=== PATIENT | female | born 2000 | race Caucasian/White ===

== ENCOUNTER 2019-04-12 20:06 | Emergency (ER) | payer BC ==
[2019-04-12 20:21] VITALS: BP 145/86
[2019-04-12] MEDS ORDERED: Clindamycin CAP* 150 MG PO ONE (20:33)
--- NOTE | 2019-04-12 20:40 | ED ---
Skin Complaint - HPI Summary HPI Summary: 19 yr old with STS anterior chin. She picked a pimple about 5-6 days ago and she has had increased swelling over the inferior aspect of the anterior mandible. She has not had any dental pain. No trouble swallowing. No drooling. No other complaints. - History of Current Complaint Chief Complaint: UCSkin Time Seen by Provider: 04/12/19 20:27 Stated Complaint: SKIN COMPLAINT Hx Last Menstrual Period: 03/28/19 Pain Intensity: 0 - Allergy/Home Medications Allergies/Adverse Reactions: Allergies Allergy/AdvReac Type Severity Reaction Status Date / Time No Known Allergies Allergy Verified 04/12/19 20:18 PMH/Surg Hx/FS Hx/Imm Hx - Surgical History Surgery Procedure, Year, and Place: tonsils Infectious Disease History: No Infectious Disease History: Denies: Traveled Outside the [place] in Last 30 Days - Family History Known Family History: Positive: None - Social History 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 Alcohol Use: Rare Substance Use Type: Reports: None Smoking Status (MU): Never Smoked Tobacco Review of Systems Constitutional: Negative Negative: Dental Pain, Sore Throat Positive: Other - skin STS chin All Other Systems Reviewed And Are Negative: Yes Physical Exam Triage Information Reviewed: Yes Vital Signs On Initial Exam: Initial Vitals Temp Pulse Resp BP Pulse Ox 98.2 F 89 17 145/86 100 04/12/19 20:18 04/12/19 20:18 04/12/19 20:18 04/12/19 20:18 04/12/19 20:18 Vital Signs Reviewed: Yes Appearance: Positive: Well-Appearing, No Pain Distress Skin: Positive: Warm, Skin Color Reflects Adequate Perfusion Head/Face: Positive: Normal Head/Face Inspection Eyes: Positive: EOMI ENT: Positive: Normal ENT inspection, Other - there is mild tenderness over the chin and STS. No swelling of the submandibular space. Tongue is normal. Normal voice. Dental: Negative: Dental Fracture @ Neck: Positive: Supple, No Lymphadenopathy Respiratory/Lung Sounds: Positive: Clear to Auscultation, Breath Sounds Present Cardiovascular: Positive: RRR. Negative: Murmur Abdomen Description: Negative: Distended Musculoskeletal: Positive: Strength/ROM Intact Neurological: Positive: Sensory/Motor Intact, Alert, Oriented to Person Place, Time, CN Intact II-III, Normal Gait, Speech Normal Psychiatric: Positive: Normal - Rahul Coma Scale Best Eye Response: 4 - Spontaneous Best Motor Response: 6 - Obeys Commands Best Verbal Response: 5 - Oriented Coma Scale Total: 15 Diagnostics - Vital Signs Vital Signs Temp Pulse Resp BP Pulse Ox 04/12/19 20:18 98.2 F 89 17 145/86 100 - Laboratory Lab Statement: Any lab studies that have been ordered have been reviewed, and results considered in the medical decision making process. Course/Dx - Course Course Of Treatment: [address] and mild cellulitis to the chin. Plan Rx Clindamycin. FU with PMD referral, ENT referral. - Diagnoses Provider Diagnoses: Abscess or cellulitis of chin, Hypertension Discharge - Sign-Out/Discharge Documenting (check all that apply): Patient Departure All imaging exams completed and their final reports reviewed: No Studies - Discharge Plan Condition: Good Disposition: HOME Prescriptions: Clindamycin HCl 300 mg PO QID #40 capsule Patient Education Materials: Cellulitis (ED), Hypertension (ED) Referrals: [facility] [Outside] - 2 Days Jaleel Bauman MD [Medical Doctor] - 2 Days No Primary Care Phys,NOPCP [Primary Care Provider] - - Billing Disposition and Condition Condition: GOOD Disposition: Home
== END 2019-04-12 20:40 | disposition home or self-care (01) ==
LOC: UCCORT 20:06
DX: L03.211 Cellulitis of face (principal); I10 Essential (primary) hypertension
CPT/HCPCS: 99202; A9270-GY; G0463